=== PATIENT | male | born 1980 | race American Indian/Alaskan Native ===

== ENCOUNTER 2022-07-28 09:41 | Emergency (ER) | payer BC, OTHER ==
[~2022-07-28] VITALS: Ht 180.3 cm; Wt 103.5 kg
[2022-07-28] MEDS ORDERED: LISINOPRIL10 MG PO (11:13)
== END 2022-07-28 12:12 | disposition home or self-care (01) ==
LOC: ED 09:41
DX: M25.461 Effusion, right knee (principal); M10.9 Gout, unspecified; I10 Essential (primary) hypertension; Z79.899 Other long term (current) drug therapy
CPT/HCPCS: 89060; 99283; J3301

== ENCOUNTER 2025-10-23 09:41 | Day surgery (SDC) | payer BC, OTHER ==
[~2025-10-23] VITALS: Ht 180.3 cm; Wt 104.0 kg
[~2025-10-23 09:41] MED LIST: IBLOOD GLUCOSE TEST STRIP 1 EA TEST VI PRN; LACTATED RINGER'S 1,000 ML IV SCH; LIDOCAINE HCL 1% 5 ML SDV INJ ONE; LISINOPRIL10 MG PO
[2025-10-23 10:02] VITALS: BP 146/90
[2025-10-23] MEDS ORDERED: LIDOCAINE HCL 2% 5 ML SDV ONE (10:23)
--- NOTE | 2025-10-23 11:12 | NUR ---
10/23/25 1112 Rena Multani 1109-PATIENT ARRIVED TO PACU ON 4L NC PLACED ON 2L NC RR EVEN 98%. SINUS BRADYCARDIA HR UPPER 40'S IVF INFUSING INFUSING. NONAROUSABLE LAYING LEFT LATERAL ABDOMEN SOFT
[2025-10-23 11:41] VITALS: BP 124/80
== END 2025-10-23 11:46 | disposition home or self-care (01) ==
LOC: DS 09:41 → OPS 09:41 → DS 11:30 → OPS 11:30
PROVIDERS: ATTEND Surgery
PROC: 0DJD8ZZ Inspection of Lower Intestinal Tract, Via Natural or Artificial Opening Endoscopic (ICD-10-PCS; principal; 2025-10-23 11:30)
DX: Z12.11 Encounter for screening for malignant neoplasm of colon (principal); K57.30 Diverticulosis of large intestine without perforation or abscess without bleeding; I10 Essential (primary) hypertension; Z79.899 Other long term (current) drug therapy
CPT/HCPCS: 00811; J2003; J2704; J7121